=== PATIENT | female | born 1980 | race American Indian/Alaskan Native ===

== ENCOUNTER 2017-03-19 09:52 | Day surgery (SDC) | payer MEDICAID ==
--- NOTE | 2017-03-19 08:23 | Discharge Summary ---
Short Stay Discharge Plan Activity: no restrictions Weight Bearing Status: Full Weight Bearing Diet: regular Wound: remove dressing (72 hrs) Follow up with: PRIMARY CAREMD [Primary Care Provider] - 6 Weeks WORK,GAGAN Ortiz JR, MD [Staff Physician] - 7 Days
--- NOTE | 2017-03-19 08:24 | Short Stay Summary ---
Short Stay Documentation Date of service: 03/19/17 - Allergies and Medications Current Medications: Allergies Iodinated Contrast Media - IV Dye Allergy (Verified 03/13/17 11:39) Itching Home Medications Medication Instructions Recorded Confirmed Last Taken Type Ascorbic Acid/Vitamin E/Biotin 1 each PO DAILY 03/13/17 03/13/17 03/09/17 History [Hair Skin Nails-Biotin Gummies] Losartan/Hydrochlorothiazide 1 each PO DAILY 03/13/17 03/13/17 Unknown History [Losartan-Hctz 50-12.5 mg Tab] Active Medications Cefazolin Sodium (Ancef/Sterile Water 2 Gm/20 Ml) 2 gm IV PREOP NR Stop: 03/19/17 23:59 - Brief post op/procedure progress note Date of procedure: 03/19/17 Pre-op diagnosis: Macromastia Post-op diagnosis: same Procedure: Gustavo. Breast Reduction Anesthesia: GETA Surgeon: GAGAN BOWEN JR Estimated blood loss: 50-100ml Specimen disposition: to lab Condition: stable - Disposition Condition at discharge: Good Disposition: DC-01 TO HOME OR SELFCARE Short Stay Discharge Plan Follow up with: GAGAN BOWEN JR, MD [Staff Physician] - 7 Days PRIMARY CAREMD [Primary Care Provider] - 6 Weeks
[~2017-03-19 09:52] MED LIST: ANCEF/STERILE WATER 2 GM/20 ML IV NR; NACL 0.9% IR ONE
--- NOTE | 2017-03-19 11:54 | Anesthesia Day of Surgery ---
Anesthesia Day of Surgery - Day of Surgery Patient Examined: Yes Patient H&P Reviewed: Yes Patient is NPO: Yes
--- NOTE | 2017-03-19 11:54 | Anesthesia Consultation ---
Anesthesia Consult and Med Hx Date of service: 03/19/17 - Airway Anesthetic Teeth Evaluation: Good ROM Head & Neck: Adequate Mental/Hyoid Distance: Adequate Mallampati Class: Class II Intubation Access Assessment: Probably Good - Pulmonary Exam CTA: Yes - Cardiac Exam Cardiac Exam: RRR - Pre-Operative Health Status ASA Pre-Surgery Classification: ASA2 Proposed Anesthetic Plan: General - Pulmonary Hx Smoking: Yes (2 cigs/day; none in 2-3 weeks) Hx Asthma: Yes (no inhaler in months) SOB: No Hx Sleep Apnea: No (LOW RISK) - Cardiovascular System Hx Hypertension: Yes (19 YRS/ MEDICATION W/DIURETIC) - Central Nervous System Hx Psychiatric Problems: Yes - Hematic Hx Sickle Cell Disease: No - Other Systems Hx Alcohol Use: Yes (SOCIALLY) Hx Substance Use: No Hx Cancer: No
[2017-03-19] MEDS ORDERED: LACTATED RINGERS 1,000 ML IV SCH ×2 (12:00→15:00)
[2017-03-19] MEDS ORDERED: PEPCID PO NR (12:00)
[2017-03-19] MEDS ORDERED: VERSED IV NR (12:00)
[2017-03-19] MEDS ORDERED: NACL BACTERIOSTATIC INFILTRATI ONE (12:15)
[2017-03-19 12:46] LABS: Basophils % (Auto) 0.8 % (0.0-1.8); Eosinophils % (Auto) 1.5 % (0.0-4.3); Hematocrit 41.2 % (30.3-42.9); Hemoglobin 13.7 gm/dl (10.1-14.3); Mean Corpuscular HGB Conc 33 % (30-34); Mean Corpuscular Hemoglobin 27 pg (28-32); Mean Corpuscular Volume 81 fl (79-97); Platelet Count 282 K/mm3 (140-440); Red Blood Count 5.11 M/mm3 (3.65-5.03); Red Cell Distribution Width 14.8 % (13.2-15.2); White Blood Count 4.5 K/mm3 (4.5-11.0)
[2017-03-19] MEDS ORDERED: XYLOCAINE MPF 2% ONE (13:15)
[2017-03-19] MEDS ORDERED: DIPRIVAN 10 MG/ML IV ONE ×2 (13:16→14:27)
[2017-03-19] MEDS ORDERED: DILAUDID ONE ×2 (13:16→14:19)
[2017-03-19] MEDS ORDERED: NACL 0.9% IR ONE (14:19)
[2017-03-19] MEDS ORDERED: ZOFRAN IV PRN (14:22)
[2017-03-19] MEDS ORDERED: NEO SYNEPHRINE/NS Syringe(OR USE) IV ONE (15:00)
[2017-03-19] MEDS ORDERED: ZOFRAN ONE (15:05)
[2017-03-19] MEDS ORDERED: DECADRON ONE (15:05)
[2017-03-19] MEDS: DILAUDID IV PRN ×4 (16:10→16:40)
[2017-03-19] MEDS ORDERED: NORCO 5/325 PO ONE (17:10)
[2017-03-19 18:01] VITALS: BP 115/65
[2017-03-19] MEDS ORDERED: ZOFRAN IV ONE (18:10)
--- NOTE | 2017-03-19 22:41 | Operative Report ---
PREOPERATIVE DIAGNOSIS: Macromastia. POSTOPERATIVE DIAGNOSIS: Macromastia. PROCEDURE: Bilateral reduction mammoplasty with NAC amputation. SURGEON: Amanuel Posey MD [employer] SUPERVISOR: Dani Barreto CSA. FINDINGS: 600 g removed from the left breast, 740 g removed from the right breast. DESCRIPTION OF PROCEDURE: The patient was brought to the operating room and placed on the table in supine position. Following administration of general anesthesia, bilateral breasts were prepped with a Betadine solution, draped in usual sterile manner. A #10 blade scalpel was used to make a circumareolar skin incision followed by de-epithelization of inferior dermal pedicle. Modified Galvez pattern skin markings were incised with scalpel, deepened through subcutaneous fat and breast tissue using electrocautery. Skin flaps were raised in standard manner as was fashioning of an inferior central mound pedicle. Breasts tissue was resected inclusive of the nipple areolar complexes bilaterally with hemostasis controlled using the electrocautery. Breast tissue was sent to Pathology as specimen. Closure was performed over 10 mm Zev drain using interrupted and running subcuticular 2-0 Monocryl sutures. Mastisol, Steri-Strips, and sterile dressings applied. The patient tolerated the procedure well and returned to recovery room in stable condition. JOB# [id number] FTW/NTS
== END 2017-03-19 18:05 | disposition home or self-care (01) ==
LOC: OR 09:52
PROVIDERS: ATTEND Plastic Surgery
DX: N62 Hypertrophy of breast (principal); I10 Essential (primary) hypertension; J45.909 Unspecified asthma, uncomplicated; Z91.041 Radiographic dye allergy status; Z87.891 Personal history of nicotine dependence; Z79.899 Other long term (current) drug therapy; Z98.51 Tubal ligation status; Z98.890 Other specified postprocedural states; Z72.89 Other problems related to lifestyle; Z82.5 Family history of asthma and other chronic lower respiratory diseases; Z82.49 Family history of ischemic heart disease and other diseases of the circulatory system
CPT/HCPCS: 19318; 36415; 81025; 84132; 85025; 88305; J0690; J1100; J1170; J2250; J2370; J2405; J2704; J7120